=== PATIENT | female | born 1970 | race Caucasian/White ===

== ENCOUNTER 2018-06-16 05:25 | Day surgery (SDC) | payer OTHER ==
[2018-06-14 17:27] LABS: CALCIUM 8.7 mg/dL (8.4-11.0); POTASSIUM 3.5 mmol/L (3.5-5.1)
[2018-06-14 17:43] LABS: BILIRUBIN,URINE NEGATIVE (NEGATIVE); CLARITY/URINE CLEAR (CLEAR); COLOR,URINE YELLOW (YELLOW); GLUCOSE,URINE NEGATIVE (NEGATIVE); KETONES,URINE TRACE (NEGATIVE); LEUKOCYTE ESTERASE ,URINE NEGATIVE (NEGATIVE); NITRITE, URINE NEGATIVE (NEGATIVE); PROTEIN URINE NEGATIVE (NEGATIVE); UROBILINOGEN,URINE 0.2 (0.2-1.0)
[2018-06-14 17:46] LABS: BASOPHILS % (AUTO) 0.7 % (0.0-2.0); BLOOD, URINE TRACE (NEGATIVE); EOSINOPHILS # (AUTO) 0.1 K/uL (0.0-0.4); EOSINOPHILS % (AUTO) 1.2 % (0.0-4.0); HEMATOCRIT 38.7 % (36-48); HEMOGLOBIN 13.6 g/dL (12.0-16.0); LYMPHOCYTES # (AUTO) 2.7 K/uL (1.0-5.5); LYMPHOCYTES % (AUTO) 43.3 % (20.5-51.5); MEAN CORPUSCULAR HEMOGLOBIN 32 pg (27-31); MEAN CORPUSCULAR HGB CONC 35 % (32-36); MEAN CORPUSCULAR VOLUME 90 fL (79.0-98.0); MONOCYTES # (AUTO) 0.5 K/uL (0.0-1.0); NEUTROPHILS # (AUTO) 2.9 K/uL (1.8-7.7); NEUTROPHILS % (AUTO) 46.8 % (40.0-70.0); PLATELET COUNT (AUTO) 277 K/uL (130-430); RED BLOOD CELL COUNT(AUTO) 4.29 MIL/uL (4.2-6.2); RED CELL DISTRIBUTION WIDTH 11.6 % (9.0-15.0); WHITE BLOOD COUNT (AUTO) 6.2 K/uL (4.8-10.8)
[2018-06-14 18:11] LABS: RBC,URINE 0-3 /HPF (0-3)
[2018-06-14 18:12] LABS: BACTERIA,URINE FEW /HPF (None Seen); MUCUS,URINE None Seen /LPF (None Seen); WBC,URINE 0-3 /HPF (0-3)
[~2018-06-16] VITALS: Ht 165.1 cm; Wt 74.8 kg
[2018-06-16] MEDS ORDERED: LR 1,000 ML IV SCH (08:19)
[2018-06-16] MEDS ORDERED: HYDROmorphone 1 MG INJ. 1 MG/ML AMPUL IVP PRN ×2 (08:30)
[2018-06-16] MEDS ORDERED: METOCLOPRAMIDE HCL 10 MG/2 ML VIAL IVP PRN (08:30)
[2018-06-16] MEDS ORDERED: HYDROmorphone 2 MG/ML VIAL IVP PRN (08:30)
[2018-06-16] MEDS ORDERED: PROMETHAZINE HCL 25 MG/ML AMP IM PRN (08:45)
[2018-06-16] MEDS ORDERED: OXYCODONE/ACETAMINOPHEN 5-325 TABLET PO PRN (08:45)
[2018-06-16] MEDS ORDERED: ONDANSETRON HCL 4 MG/2 ML VIAL IVP PRN (08:45)
[2018-06-16] MEDS ORDERED: HYDROmorphone 2 MG TAB PO PRN (08:45)
[2018-06-16] MEDS ORDERED: fentaNYL CITRATE 250 MCG/5 ML AMP ONE (08:50)
[2018-06-16] MEDS ORDERED: GLYCOPYRROLATE 0.2 MG/ML VIAL ONE (08:50)
[2018-06-16] MEDS ORDERED: SEVOFLURANE 15 MIN GAS INH ONE (08:50)
[2018-06-16] MEDS ORDERED: LR 1,000 ML IV.SOLN IV ONE (08:50)
[2018-06-16] MEDS ORDERED: MIDAZOLAM HCL 5 MG/ML VIAL (VERSED) IV ONE (08:50)
[2018-06-16] MEDS ORDERED: SILVER NITRATE APPLICATOR 1 STICK STICK..EA. TP ONE (08:50)
[2018-06-16] MEDS ORDERED: ROCURONIUM BROMIDE 10 MG/ML (ZEMURON) ONE (08:50)
[2018-06-16] MEDS ORDERED: PROPOFOL 200MG/ 20ML VIAL (DIPRIVAN) IV ONE (08:50)
[2018-06-16] MEDS ORDERED: NS IRRIG SOLN 1000 ML IR ONE (08:50)
[2018-06-16] MEDS ORDERED: NS 1000 ML IV.SOLN IV ONE (08:50)
[2018-06-16] MEDS ORDERED: PHENYLEPHRINE HCL 10 MG/ML VIAL (NEOSYNEPHRINE) ONE (08:50)
[2018-06-16] MEDS ORDERED: BUPIVACAINE LIPOSOME/PF 266 MG/20 ML VIAL INFIL ONE (08:50)
[2018-06-16] MEDS ORDERED: KETOROLAC TROMETHAMINE 30 MG VIAL ONE (08:50)
[2018-06-16] MEDS ORDERED: ONDANSETRON HCL 4 MG/2 ML VIAL ONE (08:50)
[2018-06-16 10:20] VITALS: BP_SYST 109
== END 2018-06-16 11:35 | disposition home or self-care (01) ==
LOC: SDS 05:25 → SMU 05:25 → SDS 11:35
PROVIDERS: ATTEND Obstetrics & Gynecology
DX: N83.202 Unspecified ovarian cyst, left side (principal); Z98.890 Other specified postprocedural states; F41.9 Anxiety disorder, unspecified; F32.9 Major depressive disorder, single episode, unspecified; Z79.899 Other long term (current) drug therapy; Z79.01 Long term (current) use of anticoagulants; Z88.8 Allergy status to other drugs, medicaments and biological substances; F17.210 Nicotine dependence, cigarettes, uncomplicated; Z85.3 Personal history of malignant neoplasm of breast; Z82.49 Family history of ischemic heart disease and other diseases of the circulatory system; E66.3 Overweight
CPT/HCPCS: 36415; 58661; 80048; 81000; 84703; 85025; 86886; 86900; 86901; 88307; C1727; C9290; J1885; J2250; J2370; J2405; J2704; J3010; J3490; J7030; J7120; 88305

== ENCOUNTER 2022-04-07 07:01 | Day surgery (SDC) | payer OTHER ==
[~2022-04-07] VITALS: Ht 165.1 cm; Wt 70.3 kg
[~2022-04-07 07:01] MED LIST: CEFAZOLIN SOD 1 GM/ ISO 50 ML PREMIX IV ONE
[2022-04-07 07:47] LABS: HCG,QUAL RESULT NEGATIVE (NEGATIVE)
[2022-04-07] MEDS ORDERED: DEXAMETHASONE SOD PHOSPHATE 4 MG/ML VIAL IVP ONE (09:44)
[2022-04-07] MEDS ORDERED: PROPOFOL 200MG/ 20ML VIAL (DIPRIVAN) IV ONE (09:44)
[2022-04-07] MEDS ORDERED: NS IRRIG SOLN 1000 ML IR ONE (09:44)
[2022-04-07] MEDS ORDERED: fentaNYL CITRATE 250 MCG/5 ML AMP IV ONE (09:44)
[2022-04-07] MEDS ORDERED: NS 50 ML BAG IV ONE (09:44)
[2022-04-07] MEDS ORDERED: ONDANSETRON HCL 4 MG/2 ML VIAL IVP ONE (09:44)
[2022-04-07] MEDS ORDERED: SEVOFLURANE 15 MIN GAS INH ONE (09:44)
[2022-04-07] MEDS ORDERED: LIDOCAINE 2%, 20 ML MDV INJ ONE (09:44)
[2022-04-07] MEDS ORDERED: KETOROLAC TROMETHAMINE 30 MG VIAL IVP ONE (09:44)
[2022-04-07] MEDS ORDERED: LR 1,000 ML IV.SOLN IV ONE (09:44)
[2022-04-07] MEDS ORDERED: BUPIVACAINE /PF 0.5% 30 ML VIAL INJ ONE (09:44)
[2022-04-07] MEDS ORDERED: METHYLENE BLUE 1 ML AMPUL INJ ONE (09:44)
[2022-04-07] MEDS ORDERED: MIDAZOLAM HCL 5 MG/5 ML VIAL IVP ONE (09:44)
[2022-04-07] MEDS ORDERED: CEFAZOLIN 2 GM IVPB PREMIX 50 ML IV ONE (09:44)
[2022-04-07] MEDS ORDERED: ACETAMINOPHEN I.V. 1000 MG 100 ML IV ONE (09:49)
[2022-04-07] MEDS ORDERED: LR 1,000 ML IV SCH (10:30)
[2022-04-07] MEDS ORDERED: METOCLOPRAMIDE HCL 10 MG/2 ML VIAL IVP PRN (10:30)
[2022-04-07] MEDS ORDERED: HYDROmorphone 1 MG/ML INJ. CARTRIDGE IVP PRN ×2 (10:30→11:30)
[2022-04-07] MEDS ORDERED: MEPERIDINE HCL/PF 25 MG/ML DISP.SYRIN IVP PRN (10:30)
[2022-04-07] MEDS ORDERED: MIDAZOLAM HCL 2 MG/2 ML VIAL (VERSED) IVP PRN (10:30)
[2022-04-07] MEDS ORDERED: D5/0.45 NS 1,000 ML IV SCH (11:30)
[2022-04-07] MEDS ORDERED: HYDROcodone/ACETAMIN 5-325 MG TAB (NORCO/ VICODIN) PO PRN ×2 (11:30)
[2022-04-07] MEDS ORDERED: HYDROmorphone 1 MG/ML INJ. CARTRIDGE ONE (11:45)
[2022-04-07] MEDS: HYDROmorphone 1 MG/ML INJ. CARTRIDGE IVP PRN ×2 (11:45→11:51)
[2022-04-07 13:30] VITALS: BP_SYST 106
== END 2022-04-07 13:10 | disposition home or self-care (01) ==
LOC: SDS 07:01 → SMU 07:02 → EDSTATUS 11:35 → SDS 13:10
PROVIDERS: ATTEND Colon & Rectal Surgery
DX: C50.912 Malignant neoplasm of unspecified site of left female breast (principal); F41.9 Anxiety disorder, unspecified; F32.9 Major depressive disorder, single episode, unspecified; E78.00 Pure hypercholesterolemia, unspecified; F17.210 Nicotine dependence, cigarettes, uncomplicated; Z20.822 Contact with and (suspected) exposure to COVID-19
CPT/HCPCS: 36415 ×2; 19301; 38525; 38900; 84703; 19281; 78195; 88305; 88307; 88309; 88333; 88334; 88342; 87426; U0003; A9541; J3490; J0690 ×2; J1100; J1885; J2001; Q9968; J2250; J2405; J2704; J3010; J1170; J7120; J0131